=== PATIENT | female | born 1950 | race Caucasian/White ===

== ENCOUNTER 2017-04-19 05:31 | Inpatient (IN) | payer OTHER ==
--- NOTE | 2017-04-04 14:09 | GHP ---
[f rep st] PREOP HISTORY AND PHYSICAL DATE OF SURGERY: Patient will have a right total hip arthroplasty on April. HISTORY OF PRESENT ILLNESS: The patient is a 66-year-old woman admitted for a right total hip arthroplasty. She has a history of bilateral hip pain. The right hip is more painful than the left. She saw Dr. Brad Izquierdo in [place] in July of 2016. She also has a history of fibromyalgia. She fell in April of 2016 and since then, the right hip has been much more painful. She is having daily pain but minimal night pain. Walking and standing are painful. Her activities are limited. She is allergic to aspirin and other anti- inflammatory medications and cannot use them. She has trouble putting on her shoe and sock on the right foot. She has never had surgery on the right hip. She had a cortisone injection in her right hip 6 months ago, but it did not help. She has had previous surgery on her cervical spine. She has been told that she has a bulging disk at L4. She has had bilateral patellofemoral replacements in [place]. She has occasional asthma. In 2011, after her bilateral patellofemoral replacements, she developed mild renal failure. She also had an episode of renal failure following cervical spinal surgery in 2009. She saw a cashier payments received at that time and was told that either the tramadol, propofol, or vancomycin could have caused her renal failure. Her renal function has subsequently returned to normal. No history of DVT or hepatitis. She has sleep apnea and uses a dental device for sleeping. In 2014, she had a workup for chest pain. Her LAD had 30% occlusion. She has not had any subsequent cardiac problems. CURRENT MEDICATIONS: Ambien. She uses a Ventolin inhaler p.r.n. She uses tramadol p.r.n. for a variety of different pains. DRUG ALLERGIES: She is allergic to amitriptyline, Ancef, cephalosporins, Cipro , clindamycin, codeine, Darvocet, Demerol, Flexeril, gabapentin, and Lyrica. She is also allergic to Monistat combo pack, morphine, nonsteroidal anti- inflammatory medicines, Parafon Forte, prednisone, propofol, tizanidine, topiramate, and Toradol. She also states that she has a severe reaction to vancomycin. Codeine causes a headache. She has a known nickel allergy. She also has a latex allergy. SOCIAL HISTORY: She does not smoke cigarettes or drink alcohol. She is retired. She is . FAMILY HISTORY: Positive for arthritis, heart disease, high blood pressure, cancer, asthma, elevated cholesterol, and heart disease. PHYSICAL EXAMINATION: GENERAL: She is a healthy-appearing woman. Height 5 feet 5 inches. Weight 146 pounds. BMI 24.3. EYES: Conjunctivae and sclerae are clear. Pupils are round and reactive. MOUTH: Good oral hygiene. CHEST: Clear. HEART: Regular rhythm. No murmurs. EXTREMITIES: Pertinent findings limited to her right hip. She has full hip extension and 100 degrees of flexion. External rotation 30 degrees. Internal rotation 0 degrees. Abduction 30 degrees. IMAGING: Her films show degenerative arthritis in both hips. The right hip is more involved than the left. IMPRESSION ON ADMISSION: 1. Bilateral hip degenerative arthritis. The right hip is much more symptomatic than the left. 2. Status post bilateral patellofemoral replacements. 3. History of 2 episodes of renal failure. 4. Fibromyalgia. 5. Many drug allergies. PLAN: She will undergo a right total hip arthroplasty. The surgery has been described to her, including the risks, complications, expectations, and recovery time. I have talked to her about the risk of dislocation, leg length inequality, infection, and sciatic nerve injury. She is allergic to many antibiotics. I do not think that there is an appropriate antibiotic for total hip prophylactic treatment that she is not allergic to. Therefore, I think the best course is to avoid the perioperative prophylactic antibiotics. I have advised her that this slightly increases her risk of infection. Zithromax is the only thing that she knows she can tolerate , and I do not think that would be an effective prophylactic antibiotic. All her questions and all her 's questions have been answered, and she consents to surgery. Copy requested to: Lionel Knowles MD /[id number]/MODL MTDD
[2017-04-19] MEDS ORDERED: NS IV ONE (06:00)
[2017-04-19] MEDS ORDERED: TRANEXAMIC ACID IV ONE (06:00)
[2017-04-19] MEDS ORDERED: POVIDONE-IODINE 20 ML in SODIUM CL IRRIG SOLUTION 500 ML IRR ONE (06:00)
[2017-04-19] MEDS ORDERED: ACETAMINOPHEN 325 MG TAB PO ONE (06:09)
[2017-04-19] MEDS ORDERED: DEXAMETHASONE 4 MG/ML VIAL IVP ONE (06:09)
[2017-04-19] MEDS ORDERED: FAMOTIDINE 20 MG TAB PO ONE (06:09)
[2017-04-19] MEDS ORDERED: ceFAZolin 2 GM/DEXTROSE 100 ML IV ONE (06:09)
[2017-04-19] MEDS ORDERED: LIDOCAINE 1% 2 ML INJ ID PRN (06:10)
[2017-04-19] MEDS ORDERED: LR 1,000 ML IV ONE (06:10)
[2017-04-19] MEDS ORDERED: ceFAZolin 1 GM/5 ML SYR ONE (06:24)
--- NOTE | 2017-04-19 06:58 | PDANEPAE ---
ANE History of Present Illness Total hip ANE Past Medical History - Cardiovascular History Hx Hypertension: No Hx Arrhythmias: No Hx Chest Pain: No Hx Coronary Artery / Peripheral Vascular Disease: No Hx CHF / Valvular Disease: No Hx Palpitations: No Cardiovascular History Comment: occ t wave off on ekg, cardiac work up 2014 required no follow up - Pulmonary History Hx COPD: No Hx Asthma/Reactive Airway Disease: Yes Hx Recent Upper Respiratory Infection: No Hx Oxygen in Use at Home: No Hx Sleep Apnea: Yes Sleep Apnea Screening Result - Last Documented: Positive Pulmonary History Comment: lux positive uses oral appliance- instructed pt to bring to hospital. prone to bronchitis - Neurologic History Hx Cerebrovascular Accident: No Hx Seizures: No Hx Dementia: No Neurologic History Comment: peripheral neuropathy to hands and feet - Endocrine History Hx Diabetes: No - Renal History Hx Renal Disorders: Yes Renal History Comment: hx of renal failure after surgery in 2009 and 2011. difficulty getting urine flow started currently - Liver History Hx Hepatic Disorders: No - Neurological & Psychiatric Hx Hx Neurological and Psychiatric Disorders: Yes Neurological / Psychiatric History Comment: hx of depression. anxiety - Cancer History Hx Cancer: No - Congenital Disorder History Hx Congenital Disorders: No - GI History Hx Gastrointestinal Disorders: Yes Gastrointestinal History Comment: reflux. ibs with constipation - Other Health History Other Health History: wears reading glasses. fibromyalgia - Chronic Pain History Chronic Pain: Yes (hip pain, fibromyalgia) - Surgical History Prior Surgeries: 2011 bilateral partial knee replacements - gained 35 pounds in 24 hours, no dialysis just lasix to diuresis pt. 2009 cervical fusion- renal failure wasn't so bad with this surgery- just psuedo gout within 24 hrs of surgery. 1962 right knee arthrotomy. 1979 left knee arthrotomy. 1973 total hysterectomy. dental surgeries. 2 laparotomies one had appy. valle 1995 ANE Review of Systems Review of Systems: - Exercise capacity METS (RN): 4 METS ANE Patient History - Allergies Allergies/Adverse Reactions: aspirin Allergy (Severe, Verified 04/05/17 11:38) Dyspnea clindamycin Allergy (Severe, Verified 04/05/17 11:38) Hives gabapentin Allergy (Severe, Verified 04/05/17 11:38) Dyspnea ketorolac tromethamine [From Toradol] Allergy (Severe, Verified 04/05/17 11:38) Other-Enter Comments NSAIDS (Non-Steroidal Anti-Inflamma Allergy (Severe, Verified 04/05/17 11:38) Other-Enter Comments Cephalosporins Allergy (Intermediate, Verified 04/05/17 11:38) Wheezing ciprofloxacin HCl [From Cipro] Allergy (Intermediate, Verified 04/05/17 11:38) Vomiting clopidogrel bisulfate [From Plavix] Allergy (Intermediate, Verified 04/05/17 11: 38) Abdominal Cramping codeine Allergy (Intermediate, Verified 04/05/17 11:38) Other-Enter Comments cyclobenzaprine HCl [From Flexeril] Allergy (Intermediate, Verified 04/05/17 11: 38) Other-Enter Comments morphine Allergy (Intermediate, Verified 04/05/17 11:38) Itching Proton Pump Inhibitors Allergy (Intermediate, Verified 04/05/17 11:38) Abdominal Cramping adhesive Allergy (Verified 03/22/17 10:32) amitriptyline Allergy (Verified 03/22/17 10:32) Bisphosphonates Allergy (Verified 04/05/17 11:40) egg [eggs] Allergy (Verified 03/22/17 10:32) latex Allergy (Verified 03/22/17 10:32) nickel Allergy (Verified 03/22/17 10:34) Rash prednisone Allergy (Verified 03/22/17 10:32) Wueettx-Itz-Ini Reductase Inhibitor Allergy (Verified 03/22/17 10:32) tizanidine Allergy (Verified 03/22/17 10:34) Other-Enter Comments topiramate Allergy (Verified 03/22/17 10:34) Other-Enter Comments vancomycin Allergy (Verified 03/22/17 17:11) Other-Enter Comments - Home Medications Home medications: home medication list seen and reviewed Home Medications: Diazepam [Valium 5 MG (*)] 5 mg PO DAILY 03/31/17 [Last Taken 04/18/17 20:00] Dicyclomine [Bentyl 10 MG (*)] 10 mg PO DAILY PRN 03/31/17 [Last Taken 04/15/17] Famotidine [Pepcid 20 MG (*)] 20 mg PO HS 03/31/17 [Last Taken 04/18/17 20:00] Fexofenadine HCl [Ondina Allergy] 180 mg PO DAILY PRN 03/31/17 [Last Taken 08/03] Zolpidem Tartrate [Ambien 5MG (*)] 5 mg PO HS 03/31/17 [Last Taken 04/18/17 20: 00] traMADol [Ultram 50 mg (*)] 50 mg PO DAILY PRN 03/31/17 [Last Taken 04/17/17] - NPO status NPO Since - Liquids (Date): 04/18/17 NPO Since - Liquids (Time): 02:30 (electrolyte fluid) NPO Since - Solids (Date): 04/18/17 NPO Since - Solids (Time): 17:00 - Anes Hx Hx Anesthesia Complications (with details): ? history of renal failure post anesthesia-weight gain - Smoking Hx Smoking Status: Former smoker - Alcohol Use Alcohol Use: Rarely - Family Anes Hx Family Anes Hx: none Family Hx Anesthesia Complications: none ANE Labs/Vital Signs - Vital Signs Blood Pressure: 127/83 Heart Rate: 63 Respiratory Rate: 16 O2 Sat (%): 98 Height: 165.1 cm Weight: 65.771 kg ANE Physical Exam - Airway Mallampati Score: Class 1 Mouth exam: normal dental/mouth exam - Pulmonary Pulmonary: no respiratory distress - Cardiovascular Cardiovascular: regular rate and rhythym - ASA Status ASA Status: II ANE Anesthesia Plan Anesthesia Plan: spinal (R/B/A explained and agrees to proceed. Plan Propofol but will monitor closely)
[2017-04-19] MEDS ORDERED: MIDAZOLAM 2 MG/2 ML VIAL IVP ONE (07:00)
--- NOTE | 2017-04-19 07:10 | PDHPUP ---
History & Physical Update H&P update statement: This history and physical update is based on an assessment of the patient which was completed after admission or registration (within 24 hours), but prior to the surgery/procedure. H&P update: H&P reviewed & patient examined, no change in patient's condition since H&P completed
[2017-04-19] MEDS ORDERED: ROPIVACAINE HCL 20 MG/10 ML INJ EP ONE (07:11)
[2017-04-19] MEDS ORDERED: LIDOCAINE 2% 100 MG/5 ML SYR ONE (07:15)
[2017-04-19] MEDS ORDERED: fentaNYL 100 MCG/2 ML INJ ONE (07:15)
[2017-04-19] MEDS ORDERED: PROPOFOL/EMULSION 500 MG/50 ML BOTTLE IV ONE (07:15)
[2017-04-19] MEDS ORDERED: ONDANSETRON 4 MG/2 ML VIAL ONE (07:15)
[2017-04-19] MEDS ORDERED: DEXAMETHASONE 4 MG/ML VIAL ONE (07:15)
[2017-04-19] MEDS ORDERED: epHEDrine SULFATE 10 MG/ML SYR ONE (08:11)
[2017-04-19] MEDS ORDERED: PROPOFOL 200 MG/20 ML VIAL ONE (08:22)
--- NOTE | 2017-04-19 08:53 | POSTOPPROG ---
Post Op Note Date of Operation: 04/19/17 Surgeon: Enrico Bauman Creative Writing Teacher: Ronald Schwartz/June Felix. Anesthesiologist: Dr. Dane Love Anesthesia: IV Sedation, Spinal Post-op Diagnosis: Right hip degenerative arthritis Procedure: Right total hip arthroplasty Inf/Abcess present in the surg proc area at time of surgery?: No EBL: 100-500
[2017-04-19] MEDS ORDERED: ONDANSETRON DISINTEGRATING 4 MG TAB PO PRN (08:55)
[2017-04-19] MEDS ORDERED: METOCLOPRAMIDE 10 MG/2 ML VIAL IVP PRN ×2 (08:55→08:59)
[2017-04-19] MEDS ORDERED: ONDANSETRON 4 MG/2 ML VIAL IVP PRN ×2 (08:55→08:59)
[2017-04-19] MEDS ORDERED: TEMAZEPAM 15 MG CAP PO PRN (08:55)
[2017-04-19] MEDS ORDERED: diphenhydrAMINE 25 MG CAP PO PRN (08:55)
[2017-04-19] MEDS ORDERED: CYCLOBENZAPRINE 10 MG TAB PO PRN (08:55)
[2017-04-19] MEDS ORDERED: PROMETHAZINE HCL 25 MG/ML INJ IVP PRN (08:55)
[2017-04-19] MEDS ORDERED: POLYETHYLENE GLYCOL 3350 17 GM PKT PO PRN (08:55)
[2017-04-19] MEDS ORDERED: BISACODYL 10 MG SUPP PR PRN (08:55)
[2017-04-19] MEDS ORDERED: PROMETHAZINE HCL 25 MG SUPPR PR PRN (08:55)
[2017-04-19] MEDS ORDERED: DIPHENOXYLATE/ATROPINE LOMOTIL 1 TAB PO PRN (08:55)
[2017-04-19] MEDS ORDERED: MAGNESIUM HYDROXIDE 30 ML UDCUP PO PRN (08:55)
[2017-04-19] MEDS ORDERED: LACTULOSE 20 GM/30 ML UDCUP PO PRN (08:55)
[2017-04-19] MEDS ORDERED: ALBUTEROL 3 ML DEYVIAL IH PRN (08:59)
[2017-04-19] MEDS ORDERED: MEPERIDINE 25 MG/ML SYR IVP PRN (08:59)
[2017-04-19] MEDS ORDERED: HYDROCODONE/APAP 5/325 TAB PO PRN (08:59)
[2017-04-19] MEDS ORDERED: DEXAMETHASONE 4 MG/ML VIAL IVP PRN (08:59)
[2017-04-19] MEDS ORDERED: LR 500 ML IV PRN (08:59)
[2017-04-19] MEDS ORDERED: OXYCODONE/APAP 5/325 TAB PO PRN (08:59)
[2017-04-19] MEDS ORDERED: ACETAMINOPHEN 500 MG TAB PO PRN (08:59)
[2017-04-19] MEDS ORDERED: fentaNYL 100 MCG/2 ML INJ IVP PRN (08:59)
[2017-04-19] MEDS ORDERED: LABETALOL HCL 50 MG/10 ML SYR IVP PRN (08:59)
[2017-04-19] MEDS ORDERED: NALOXONE HCL 0.4 MG/ML INJ IVP PRN (08:59)
[2017-04-19] MEDS ORDERED: LR 1,000 ML IV SCH (09:00)
[2017-04-19] MEDS ORDERED: DICYCLOMINE 10 MG CAP PO PRN (09:03)
--- NOTE | 2017-04-19 09:03 | POSTANESTH ---
Post Anesthetic Evaluation Cardiovascular Status: Normal, Stable Respiratory Status: Normal, Stable Level of Consciousness/Mental Status: Can Participate in Eval Pain Control: Adequate, Prn Tx Ordered Nausea/Vomiting Control: Adequate, Prn Tx Ordered Complications Possibly Related to Anesthesia: None Noted
--- NOTE | 2017-04-19 09:47 | GOP ---
[f rep st] OPERATIVE REPORT DATE OF OPERATION: 04/19/2017 SURGEON: Enrico Bauman MD CNA PCT: PHOENIX Arce RN ANESTHESIA: A combination of Marcaine spinal and IV sedation. ANESTHESIOLOGIST: Dane Love MD. PREOPERATIVE DIAGNOSIS: Right hip degenerative arthritis. POSTOPERATIVE DIAGNOSIS: Right hip degenerative arthritis. PROCEDURE PERFORMED: Right total hip arthroplasty, ceramic femoral head on highly cross-linked polye thylene cup liner. FINDINGS: DESCRIPTION OF PROCEDURE: The patient was given 2 g of IV Ancef preoperatively within 60 minutes of surgery. She also received IV tranexamic acid at a dose of 20 mg/kg. She was placed on the operatin g room table and given spinal anesthesia with Marcaine by Dr. Love. She was then placed supine and given IV sedation. A Espinoza catheter was not used. She wore a THEODORE stocking and SCD on the nonoperati ve leg. She was rolled to the left lateral decubitus position. The position was secured with the pe gboard table attachment. An axillary roll was used, and all pressure points were carefully padded. I was careful to lock her pelvis in a rigid vertical position. Her perineum was isolated with plasti c adhesive drapes. The right hip and right lower extremity were prepped with ChloraPrep. They were draped free using sterile sheets, stockinette, and Ioban plastic adhesive drapes. The World Health Organization time-out was performed to verify the correct surgical side and site and the correct patient identity. The [place] time-out was also performed. I made a 5-inch straight oblique posterolateral hip skin incision. The subcutaneous tissues were sha rply divided, and hemostasis was obtained using electrocautery. The fascia mehnaz was identified and s plit along the axis of its fibers. I then curved posteriorly and proximally, and split the fascia of the gluteus kasia and bluntly split the muscle fibers in line with their orientation. The Charnle y self-retaining retractor was inserted. Her sciatic nerve was located, partially exposed, and prote cted throughout the procedure. The external rotators and the posterior hip capsule were divided as s eparate layers at the base of the femoral neck, tagged, and reflected posteriorly. A smooth 8-inch S teinmann pin was inserted vertically into the ilium, superior to the acetabulum. An eighth-inch dril l bit was inserted vertically into the greater trochanter and parallel to the first pin. The distanc e between the 2 was measured for leg length reference. Her femoral head was dislocated posteriorly. Severe degenerative changes were present on the femoral head. Her femoral neck was osteotomized at the appropriate level and inclination. I was careful to preserve all the posterior capsule and most of the anterior capsule. The remnant of her badly damaged labrum was excised. I prepared the femur first. This allowed me to business affairs manager the amount of natural femoral neck anteversion. This, in turn, allowed me to later determine the correct amount of cup anteversion. She had approx imately 15 degrees of natural femoral neck anteversion. The canal was opened laterally with a box ch liz. I hand reamed and broached sequentially up to a size 5. I used the Accolade II broach and siz e 5 as a trial stem. I was careful to lateralize adequately. Appropriate retractors were inserted to expose the acetabulum. The acetabulum was reamed sequentiall y up to 49 mm. I selected a 50 mm Dawn Tritanium solid-backed hemispherical shell. This was von ed securely into place in the proper degree of inclination and anteversion. I used the transverse ac etabular ligament and other acetabular bony landmarks to help me properly orient the cup. I inserted a screw-in metal dome hole plug. She had some small anterior acetabular osteophytes, which I remove d with an osteotome and rongeur. I performed a series of trial reductions to determine length and stability. I concluded that the siz e 5, high offset stem with a zero neck length and a 32 mm head with a 10-degree lipped liner gave me the proper combination of appropriate length and good anterior and posterior stability. She was a fe w millimeters short preoperatively, and I was intentionally lengthening her. The 10-degree lip Dawn X3 highly cross-linked polyethylene liner was inserted and tapped securely into place. I dialed the 10 degrees so that it was directly posterior. I chose the [place] Secur-Fi t Max stem and a size 5 with high offset. This was inserted press-fit and was very tight. I recogni zed that I was leaving it 1 or 2 mm proud. I did one final trial reduction and confirmed that the ze ro neck length with the 32 mm head was the proper combination. I selected the [place] Biolox Delta c eramic head with an outside diameter of 32 mm and a neck length of 0 mm. The head was tapped securel y onto the clean trunnion. The acetabulum was irrigated, cleaned, and the hip was reduced 1 final ti me. She had excellent anterior and posterior stability and appropriate length. 40 mL of the joint anesthetic cocktail were injected into the capsule, the deep musculature, and the subcutaneous tissues around the skin edges. The joint was thoroughly irrigated one final time with a dilute Betadine solution. Her sciatic nerve was reinspected and looked unharmed. The external rotators and the posterior hip capsule were repaired in separate layers with #2 FiberWir e sutures through drill holes in the greater trochanter. This provided a strong posterior capsular a nd external rotator repair. The fascia mehnaz was closed, first with a couple of wsczna-zx-tzher #2 Fi berWire sutures followed by a running #2 barbed Ethicon Stratafix PDO suture. Subcutaneous tissues w ere closed with a running 0 barbed Ethicon Stratafix Monoderm suture. The skin was closed with a run mitch 3-0 barbed Ethicon Stratafix Monoderm subcuticular suture. The skin edges were reapproximated a nd sealed with Dermabond glue. The wound was covered with a large 1 piece Aquacel Ag surgical dressi ng. A long-leg THEODORE stocking and SCD were applied to her right lower extremity. She wore a stocking and S CD on the opposite leg during the procedure. An abduction pillow was placed between her knees. She was awakened from anesthesia and rolled to the supine position on her [facility]. She was taken to PACU in satisfactory condition. There were no recognized intraoperative complications. The estimated blood loss was about 200 mL. The sponge and needle count was correct on 2 occasions. I used a [place] Tritanium hemispherical solid-backed acetabular shell with an outside diameter of 50 mm. The liner was a [place] X3 10-degree highly cross-linked liner with an inside diameter of 32 mm . The femoral component was a press-fit [place] Accolade II stem in size 5 and high offset. The fem oral head was a [place] Biolox Delta ceramic head with a zero neck length and a 32 mm outside diamete rGonzález Schwartz and June Felix acted as surgical assistants. Their assistance was a medical necessi ty for safe completion of the procedure. /[id number]/MODL
[2017-04-19] MEDS: SENNOSIDES/DOCUSATE SODIUM TAB PO SCH ×2 (10:20→20:01)
[2017-04-19] MEDS: traMADol 50 MG TAB PO PRN (10:53)
[2017-04-19] MEDS: FERROUS SULFATE 140 MG TAB.ER PO SCH (10:53)
[2017-04-19] MEDS: ACETAMINOPHEN 325 MG TAB PO SCH ×3 (11:20→22:51)
[2017-04-19] MEDS: oxyCODONE IR 5 MG TAB PO PRN ×4 (12:42→22:49)
[2017-04-19] MEDS: ceFAZolin 2 GM/DEXTROSE 100 ML IV SCH ×2 (15:30→22:49)
[2017-04-19] MEDS: DIAZEPAM 5 MG TAB PO PRN (20:00)
[2017-04-19] MEDS: FAMOTIDINE 20 MG TAB PO SCH (20:00)
[2017-04-20] MEDS: traMADol 50 MG TAB PO PRN ×2 (04:40→16:51)
[2017-04-20] MEDS: DIAZEPAM 5 MG TAB PO PRN ×2 (04:40→20:40)
[2017-04-20] MEDS: ACETAMINOPHEN 325 MG TAB PO SCH ×3 (04:44→18:31)
[2017-04-20 05:31] LABS: HEMATOCRIT 37.4 % (38.0-47.0); HEMOGLOBIN 12.6 g/dL (12.6-16.3)
[2017-04-20] MEDS: FERROUS SULFATE 140 MG TAB.ER PO SCH (07:52)
[2017-04-20] MEDS: SENNOSIDES/DOCUSATE SODIUM TAB PO SCH ×2 (07:52→20:40)
[2017-04-20] MEDS: ENOXAPARIN 40 MG/0.4 ML SYR SC SCH (07:52)
[2017-04-20] MEDS: FAMOTIDINE 20 MG TAB PO SCH ×2 (07:52→20:40)
[2017-04-20] MEDS ORDERED: CETIRIZINE 10 MG TAB PO PRN (09:00)
[2017-04-20] MEDS: oxyCODONE IR 5 MG TAB PO PRN (09:31)
--- NOTE | 2017-04-20 11:39 | SOAPPROG ---
SOAP Progress Note Assessment/Plan: Assessment: Afebrile. Awake and alert. Moderate pain. She had a syncopal episode in the bathroom when she was up this morning. She has been walking in the room. Her dressing is dry. Sciatic nerve intact. H&H is adequate. Postop films look excellent. Plan: Continue to mobilize with physical therapy today. Training on stairs. Discharged later today If stable. 04/20/17 11:37 Objective: Vital Signs Temp Pulse Resp BP Pulse Ox 36.9 C 70 16 120/66 97 04/20/17 11:14 04/20/17 11:14 04/20/17 11:14 04/20/17 11:14 04/20/17 11:14 Laboratory Results 04/20/17 04:56 04/19/17 04/20/17 04/21/17 05:59 05:59 05:59 Intake Total 1530 Output Total 4050 Balance -2520 ICD10 Worksheet Patient Problems: Problems Problem Status Onset Osteoarthritis of right hip Acute
--- NOTE | 2017-04-20 12:24 | GDS ---
[f rep st] DISCHARGE SUMMARY ADMISSION DIAGNOSIS: Right hip severe degenerative arthritis. DISCHARGE DIAGNOSIS: Right hip severe degenerative arthritis. OPERATION PERFORMED: 04/19/2017, a right total hip arthroplasty, ceramic femoral head on highly cros s-linked polyethylene cup liner. SURGEON: Enrico Bauman MD POSTOPERATIVE COMPLICATIONS: None. CONDITION ON DISCHARGE: Improved. DESCRIPTION OF HOSPITAL COURSE: The patient was admitted to the hospital on the morning of surgery. Her admission CBC and electrolytes were normal. BUN 15, creatinine 0.9. The same day, under a comb ination of Marcaine, spinal, and IV sedation, she underwent a right total hip arthroplasty. Postoper atively, she was treated with multimodal DVT prophylaxis including Lovenox and early mobilization. S he has an allergy to aspirin. On the first postoperative day, her hemoglobin and hematocrit were 12. 6 and 37.4. She was seen by Physical Therapy and made satisfactory progress with ambulation and stai rs. By the time of discharge, she was afebrile, her wound was dry and she was independent walking wi th a walker. DISPOSITION: The patient is discharged to her home. She will go to outpatient physical therapy next week. She may progress to full weightbearing on the right as tolerated. Use an abduction pillow in bed for 3 weeks. Use THEODORE stockings for 1 week. Continue Lovenox 40 mg subcu daily for 14 days. I will see her back in the office on May 09, 2017. She has prescriptions for oxycodone and tramado l for pain control. If there any problems, she is to call me at the office. /[id number]/MODL
--- NOTE | 2017-04-20 14:30 | ASMTCMCOM ---
CM Note CM Note Notes: Pt medically stable for d/c, no CM d/c needs identified. Pt will have outpat PT. Date Signed: 04/20/2017 02:29 PM Electronically Signed By:NAVEED Posey
[2017-04-21] MEDS: ACETAMINOPHEN 325 MG TAB PO SCH ×2 (00:33→05:10)
[2017-04-21] MEDS: traMADol 50 MG TAB PO PRN ×2 (01:22→08:18)
[2017-04-21 05:15] LABS: HEMATOCRIT 35.8 % (38.0-47.0)
[2017-04-21 05:49] VITALS: RESP 16
[2017-04-21 07:15] VITALS: BP 119/66; PULSE 77; TEMP 99.8; O2SAT 96
--- NOTE | 2017-04-21 07:26 | SOAPPROG ---
SOAP Progress Note Assessment/Plan: Assessment: Afebrile. Awake and alert. Moderate pain. She had a syncopal episode in the bathroom when she was up this morning. She has been walking in the room. Her dressing is dry. Sciatic nerve intact. H&H is adequate. Postop films look excellent. Plan: Continue to mobilize with physical therapy today. Training on stairs. Discharged later today If stable. 04/20/17 11:37 04/21/17 07:24 Afebrile. BP a little low. Still mild postural hypotension. Dsg is dry. H/H is stable. P: Continue PT today. Home today. Objective: Vital Signs Temp Pulse Resp BP Pulse Ox 37.7 C 77 16 119/66 96 04/21/17 07:12 04/21/17 07:12 04/21/17 07:12 04/21/17 07:12 04/21/17 07:12 Laboratory Results 04/21/17 04:58 04/20/17 04/21/17 04/22/17 05:59 05:59 05:59 Intake Total 1530 350 Output Total 0649 1 Balance -9510 -8964 ICD10 Worksheet Patient Problems: Problems Problem Status Onset Osteoarthritis of right hip Acute
[2017-04-21] MEDS: FAMOTIDINE 20 MG TAB PO SCH (08:13)
[2017-04-21] MEDS: SENNOSIDES/DOCUSATE SODIUM TAB PO SCH (08:13)
[2017-04-21] MEDS: ENOXAPARIN 40 MG/0.4 ML SYR SC SCH (08:13)
[2017-04-21] MEDS: FERROUS SULFATE 140 MG TAB.ER PO SCH (08:13)
--- NOTE | 2017-04-21 11:28 | ASDISCHSUM ---
Discharge Information Plan Status:Home with No Needs Medically Cleared to Leave: Discharge Date:04/21/2017 10:48 AM CM D/C Disposition:Home, Routine, Self-Care ADT D/C Disposition:Home, Routine, Self-Care Projected Discharge Date:04/21/2017 10:48 AM Transportation at D/C: Discharge Delay Reason: Follow-Up Date:04/21/2017 10:48 AM Discharge Slot: Final Diagnosis: Placement Information Patient Contact Information Contact Name:BRAD Relationship: Address:[address] Work Phone: City:[facility] Phone: [facility]/Zip Code:[place] [address] Email: Financial Information Financial Class:Medicare Advantage Plans Primary Plan Desc:[employer] G[employer] MEDICARE Primary Plan Number:[id number] Secondary Plan Desc: Secondary Plan Number: Assessment Information [facility] CM Progress Note CM Note CM Note Notes: Pt medically stable for d/c, no CM d/c needs identified. Pt will have outpat PT. Date Signed: 04/20/2017 02:29 PM Electronically Signed By:NAVEED Posey Intervention Information Intervention Type:*ABDIEL-Signed Date of Service:04/21/2017 10:24 AM Patient Type:Inpatient Staff Member:Dayami Lane Hours: Discipline: Severity: Comment:
== END 2017-04-21 10:48 | disposition home or self-care (01) | DRG 470 ==
LOC: F3N 05:31
PROVIDERS: ADMIT Orthopaedic Surgery; ATTEND Orthopaedic Surgery
PROC: 0SR904Z Replacement of Right Hip Joint with Ceramic on Polyethylene Synthetic Substitute, Open Approach (ICD-10-PCS; principal; 2017-04-19 09:45)
DX: M16.11 Unilateral primary osteoarthritis, right hip (principal); Z96.653 Presence of artificial knee joint, bilateral; M79.7 Fibromyalgia; G47.33 Obstructive sleep apnea (adult) (pediatric); G62.9 Polyneuropathy, unspecified; K21.9 Gastro-esophageal reflux disease without esophagitis; Z87.891 Personal history of nicotine dependence
CPT/HCPCS: 97116-GP; 97161-GP; 97165-GO; 97530-GP; 97535-GO; G8987-GO-CK; G8988-GO-CI; G8989-GO-CI; J0690; J1100; J1650; J2001; J2250; J2405; J2704; J2795; J3010